=== PATIENT | female | born 1940 | race Caucasian/White ===

== ENCOUNTER 2016-08-17 20:08 | Emergency (ER) | payer OTHER ==
[~2016-08-17 20:08] MED LIST: AZITHROMYCIN250 MG PO; CALCIUM 600; CEPHALEXIN500 MG PO; CHLORTHALIDONE25 MG PO; FISH OIL; LISINOPRIL20 MG PO; LUCENTIS IM; MULTIPLE VITAMIN PO; NORCO1 TA1 PO; OCUVITE; PRESERVISION/LUTEIN; VISTARIL25 MG PO; VITAMIN D-31000 UNIT PO
--- NOTE | 2016-08-18 01:05 | ED CLINICAL REPORT ---
Clinical Report - Physicians/Mid Levels [facility] [address] [place] [address] 08/17/2016 20:08 Patient: KUMAR CORTES Time Seen: 21:38. Arrived- By private vehicle. Historian- patient. HISTORY OF PRESENT ILLNESS Chief Complaint: facial pain. No weakness or numbness. No tingling (she has suffered with several weeks of left-sided facial pain. She was seen today by her neurologist Dr. Ray. He ordered an MRI which was performed but she does not yet know the results. She was started on baclofen but says that in spite of that she is continuing to have pain. She says that it makes it difficult for her to drink fluids especially if they're cold.). This started several weeks ago and is still present. It was gradual in onset and has been constant. REVIEW OF SYSTEMS No chills, fever, sweats, calf pain or chest pain. No cough, difficulty breathing, pedal edema, palpitations or abdominal pain. No constipation, diarrhea, nausea, vomiting or urinary problems. All systems otherwise negative, except as recorded above. PAST HISTORY Problems: Dental Pain. Pleurisy. Pneumonia. Hepatitis C carrier. Murmur. Hypertension. Additional Surgeries: Appendectomy. Knee Surgery. Medications: Baclofen 10mg , TID. Lisinopril Oral (Tablet 20 mg) 1 tablet, daily. Allergies: No Known Drug Allergy. SOCIAL HISTORY Never smoker. No alcohol use or drug use. She lives with spouse. Has good social support. FAMILY HISTORY Denies family medical history. PHYSICAL EXAM Appearance: Alert. Head: Head atraumatic. Left cheek: severe tenderness. No erythema, swelling or ecchymosis. Eyes: Pupils equal, round and reactive to light. ENT: Normal ENT inspection. Airway intact. Pharynx normal. Neck: Normal inspection. Neck supple. CVS: Normal heart rate and rhythm. Heart sounds normal. Pulses normal. Respiratory: No respiratory distress. Breath sounds normal. Abdomen: Soft and nontender. No organomegaly. Back: Normal inspection. No CVA tenderness. Skin: Skin warm and dry. Normal skin color. Normal skin turgor. Extremities: Extremities exhibit normal ROM. No lower extremity edema. Neuro: Alert. Oriented X 3. Mood/affect normal. Cranial nerves normal (as tested). No facial weakness. No cerebellar findings. No motor deficit. No sensory deficit. LABS, X-RAYS, AND EKG Laboratory Tests: CBC w Diff: (TAMIR: 08/17/2016 22:45) ( [facility] [place] [place] 08/17/2016 22:53) Final results Test Result Flag Units (Reference) WHITE BLOOD COUNT 5.2 K/uL (4.5-11.5) RED BLOOD COUNT 4.57 M/uL (4.00-5.20) HEMOGLOBIN 13.7 gm/dL (12.0-16.0) HEMATOCRIT 42.6 % (36.0-46.0) MEAN CELL VOLUME 93 fL (80-100) MEAN CORPUSCULAR HGB 30 pg (26-34) MEAN CORPUSCULAR HGB CONC 32 g/dL (31-37) RED CELL DISTRIBUTION WIDTH 12.6 % (11.6-14.8) PLATELET COUNT 161 K/uL (150-400) LYMPH % 47.2 H % (25-40) MONO % 6.8 % (3-14) GRANULOCYTE % 46.0 L (53-90) CMP: (TAMIR: 08/17/2016 22:45) ( [facility] [place] 08/17/2016 23:05) Final results Test Result Flag Units (Reference) GLUCOSE 83 mg/dL (70-110) BUN 26 H mg/dL (7-18) CREATININE 0.9 mg/dL (0.6-1.3) Estimated GFR >60 mL/min Estimated GFR- >60 mL/min Note: Persistent reduction over 3 months in eGFR<60 mL/min/1.73 m2 defines CKD. Patients with eGFR values>=60 mL/min/1.73 m2 may also have CKD if evidence ofpersistent proteinuria. Additional information may be foundat www.kidney.org. SODIUM 140 mmol/L (136-145) POTASSIUM 3.5 mmol/L (3.5-5.1) CHLORIDE 101 mmol/L (98-107) CARBON DIOXIDE 29 mmol/L (21-32) CALCIUM 10.0 mg/dL (8.5-10.1) TOTAL PROTEIN 7.7 g/dL (6.4-8.2) ALBUMIN 4.0 g/dL (3.3-5.0) BILIRUBIN, TOTAL 1.3 H mg/dL (0.0-1.0) ALKALINE PHOSPHATASE 79 U/L (46-116) AST (SGOT) 59 H U/L (15-37) ALT (SGPT) 83 H U/L (12-78) . PROGRESS AND PROCEDURES Course of Care: Her MRI results are pending. She can follow up on the results of this with Dr. Ray. Consult obtained from neurology. Dr. Ray - he suggests that we start the patient on carbamazepine. We discussed the patient's hepatitis. He says that old labs she had mild elevations in her liver function tests. He feels that the carbamazepine will be safe as long as these elevations haven't increased. Case discussed. Phone consult only. Will see patient in the office. Patient/family counseled. Old medical records reviewed. Disposition: Discharged. Condition: stable. CLINICAL IMPRESSION Trigeminal neuralgia. INSTRUCTIONS Warnings: Further evaluation is necessary. GENERAL WARNINGS: Return or contact your physician immediately if your condition worsens or changes unexpectedly, if not improving as expected, or if other problems arise. Prescription Medications: Zofran 4 mg: Take 1 orally every six hours as needed for nausea/vomiting. Dispense ten (10). No refills. Substitution is permissible. Carbamazepine 200 mg tablets: take 1 orally every 12 hours. Dispense thirty (30). No refills. Follow-up: Follow up with a neurologist Dr. Ray in four days. Call for an appointment. Understanding of the discharge instructions verbalized by patient and family. (Electronically signed by Ion San MD 08/22/2016 16:13)
--- NOTE | 2016-08-18 01:05 | ED NURSING NOTES ---
Clinical Report - Nurses [facility] [address] [place] [address] 08/17/2016 20:08 Patient: KUMAR CORTES TRIAGE Triage time 21:32 Aug 17 2016. Acuity: LEVEL 4. Chief Complaint: (3-4 weeks). Alert. CHANDRAKANT COMA SCORE: [place] Coma Scale: 15- eyes open spontaneously (4); best verbal response- oriented x 4 (5); best motor response- obeys commands (6). --21:40 Ya Simon R.N. 21:32 08/17/16. BP: 177/146. HR: 69. RR: 18. O2 saturation: 100%. Temp: 98.5 F. Pain level now 10/10. --21:40 Ya Simon R.N. ( rapid triage done at time of check in (in [facility]), negative FAST exam at that time.). --21:54 Reshma Foster R.N. Weight: 68 kg estimated. Height/Length: 66 inches Estimated. BMI: 24.2. --21:31 Ya Siomn R.N. Medications Lisinopril Oral (Tablet 20 mg) 1 tablet, daily. --21:34 Ya Simon R.N. Baclofen 10mg , TID. --21:34 Ya Simon R.N. Medication/allergy information source: the patient. --21:40 Ya Simon R.N. Allergies No Known Drug Allergy. --21:34 Ya Simon R.N. History Arrived by private vehicle. Historian: patient. Primary physician (Dr. Ray - Neurology). ( Pt had an MRI today per Dr. Ray - Neurology for r/o Trigeminal Neurlagia/Neuritis. Was prescribed Baclofen for pain. Pt is here because she has increased pain, cannot eat or drink.). This started just prior to arrival and today. 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 SOCIAL HX: Never smoker. No alcohol use or drug use. No infectious disease exposure. FALL RISK ASSESSMENT: Fall risk assessment completed. No fall risk identified. NUTRITIONAL RISK ASSESSMENT: The nutritional risk assessment revealed no deficiencies. FUNCTIONAL ASSESSMENT: Functional assessment: no impairments noted. LEARNING NEEDS ASSESSMENT: The learning needs assessment revealed no barriers. SKIN INTEGRITY ASSESSMENT: Skin integrity risk assessment completed. No skin integrity risk identified. --21:40 Ya Simon R.N. PROBLEMS: Dental Pain. Pleurisy. Pneumonia. Hepatitis C carrier. Murmur. Hypertension. --21:35 Ya Simon R.N. Interventions ID band on patient. To room. --21:40 Ya Simon R.N. PHYSICAL ASSESSMENT 21:52. Ambulatory to room. GENERAL / NEURO / PSYCH: Alert. Oriented X 4. Appears in pain. ( pt unable to move mouth due to facial pain. writtng everything down. c/o nausea). RESPIRATORY: Respirations not labored. CVS: Capillary refill less than 2 seconds. GI / : ( c/o nausea). Abdomen soft. SKIN: Skin is warm and dry. --22:11 Radha Nunez R.N. NURSING PROGRESS NOTES ( Dr. San in triage room seeing pt. Pt is accompanied by her .). --21:40 Ya Simon R.N. ( Pt brought back to room 12.). --21:52 Ya Simon R.N. 22:02 08/17/2016 Zofran ODT (Ondansetron) PO Oral Disintegrating Tablets 4 mg given. Allergies verified and confirmed 5 rights. --22:09 Radha Nunez R.N. 22:04 08/17/2016 Dilaudid (HYDROmorphone HCl PF) IM 1 mg given. Given in the left ventral gluteus. Allergies verified, confirmed 5 rights and sedative warning given to the patient. --22:09 Radha Nunez R.N. 22:06 08/17/2016 Toradol (Ketorolac Tromethamine) IM 60 mg given. Given in the right ventral gluteus. Allergies verified and confirmed 5 rights. --22:10 Radha Nunez R.N. 22:11 08/17/16. ( meds given, pt c/o nausea.). --22:11 Radha Nunez R.N. 22:32 08/17/16. Reassessment after medication administered. She is resting quietly. Overall patient status is improved- she states feels better (3/10, but very sleepy). --22:32 Radha Nunez R.N. 22:34 08/17/16. BP: 160/64. HR: 66. RR: 16. O2 saturation: 99%. Temp: deferred. Pain level now: 10/16. Additional comments: states nause is better too . --22:35 Radha Nunez R.N. 22:38 08/17/16. Care transferred and report given (Radha JAQUEZ). --22:38 Radha Nunez R.N. ( PO Challenge). --23:13 Ya Simon R.N. 00:28 08/18/2016 Phenergan (Promethazine HCl) IM 25 mg given. Given in the left gluteus lesvia. Sedative warning given to the patient. --00:28 Ya Simon R.N. The patient has had no adverse reaction. Overall patient status is the same- she states feels the same. ( Pt offered warm water, unable to drink it she states. Pt offered and given many ideas of liquids to help her, chicken broth, predialyte, Propel, popsicles, pt states she cannot take any of this. RN told pt, "you have to try something". RN informed pt that she is refusing all offers of hydration, you are making it difficult to find a solution. Find something you can tolerate liquid stacy and stick with that for oral hydration. Pt has had the dry heaves, was medicated with Phenergan. Pt states she would just like to go home at this point.). --00:49 Ya Simon R.N. 00:46 08/18/16. BP: 160/70. HR: 78. RR: 18. O2 saturation: 98%. --00:49 Ya Simon R.N. DISPOSITION / DISCHARGE Departure time: 01:15 Aug 18 2016. Condition at departure: improved and stable. ( pt has not vomited. She states she is ready to go home. Sick bag provided for the ride.). No learning barriers present. Discharge instructions provided and reviewed with the patient and spouse. Patient and spouse verbalized understanding. Written instructions provided in Arabic. ( Assisted pt out to the car, helped into car.). The patient was discharged by the physician. She was discharged home and accompanied by spouse. She left the Emergency Department in a wheelchair and via private vehicle. Spouse driving. --01:50 Ya Simon R.N. 01:49 08/18/16. BP: 160/70. HR: 78. Pain level now 03/18. --01:50 Ya Simon R.N. Locked/Released at 08/18/2016 1:50 by Ya Simon R.N.
--- NOTE | 2016-08-18 01:05 | ED NURSING NOTES ---
Clinical Report - Nurses [facility] [address] [place] [address] 08/17/2016 20:08 Patient: KUMAR CORTES TRIAGE Triage time 21:32 Aug 17 2016. Acuity: LEVEL 4. Chief Complaint: (3-4 weeks). Alert. CHANDRAKANT COMA SCORE: [place] Coma Scale: 15- eyes open spontaneously (4); best verbal response- oriented x 4 (5); best motor response- obeys commands (6). --21:40 Ya Simon R.N. 21:32 08/17/16. BP: 177/146. HR: 69. RR: 18. O2 saturation: 100%. Temp: 98.5 F. Pain level now 10/10. --21:40 Ya Simon R.N. ( rapid triage done at time of check in (in [facility]), negative FAST exam at that time.). --21:54 Reshma Foster R.N. Weight: 68 kg estimated. Height/Length: 66 inches Estimated. BMI: 24.2. --21:31 Ya Simon R.N. Medications Lisinopril Oral (Tablet 20 mg) 1 tablet, daily. --21:34 Ya Simon R.N. Baclofen 10mg , TID. --21:34 Ya Simon R.N. Medication/allergy information source: the patient. --21:40 Ya Simon R.N. Allergies No Known Drug Allergy. --21:34 Ya Simon R.N. History Arrived by private vehicle. Historian: patient. Primary physician (Dr. Ray - Neurology). ( Pt had an MRI today per Dr. Ray - Neurology for r/o Trigeminal Neurlagia/Neuritis. Was prescribed Baclofen for pain. Pt is here because she has increased pain, cannot eat or drink.). This started just prior to arrival and today. 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 SOCIAL HX: Never smoker. No alcohol use or drug use. No infectious disease exposure. FALL RISK ASSESSMENT: Fall risk assessment completed. No fall risk identified. NUTRITIONAL RISK ASSESSMENT: The nutritional risk assessment revealed no deficiencies. FUNCTIONAL ASSESSMENT: Functional assessment: no impairments noted. LEARNING NEEDS ASSESSMENT: The learning needs assessment revealed no barriers. SKIN INTEGRITY ASSESSMENT: Skin integrity risk assessment completed. No skin integrity risk identified. --21:40 Ya Simon R.N. PROBLEMS: Dental Pain. Pleurisy. Pneumonia. Hepatitis C carrier. Murmur. Hypertension. --21:35 Ya Simon R.N. Interventions ID band on patient. To room. --21:40 Ya Simon R.N. PHYSICAL ASSESSMENT 21:52. Ambulatory to room. GENERAL / NEURO / PSYCH: Alert. Oriented X 4. Appears in pain. ( pt unable to move mouth due to facial pain. writtng everything down. c/o nausea). RESPIRATORY: Respirations not labored. CVS: Capillary refill less than 2 seconds. GI / : ( c/o nausea). Abdomen soft. SKIN: Skin is warm and dry. --22:11 Radha Nunez R.N. NURSING PROGRESS NOTES ( Dr. San in triage room seeing pt. Pt is accompanied by her .). --21:40 Ya Simon R.N. ( Pt brought back to room 12.). --21:52 Ya Simon R.N. 22:02 08/17/2016 Zofran ODT (Ondansetron) PO Oral Disintegrating Tablets 4 mg given. Allergies verified and confirmed 5 rights. --22:09 Radha Nunez R.N. 22:04 08/17/2016 Dilaudid (HYDROmorphone HCl PF) IM 1 mg given. Given in the left ventral gluteus. Allergies verified, confirmed 5 rights and sedative warning given to the patient. --22:09 Radha Nunez R.N. 22:06 08/17/2016 Toradol (Ketorolac Tromethamine) IM 60 mg given. Given in the right ventral gluteus. Allergies verified and confirmed 5 rights. --22:10 Radha Nunez R.N. 22:11 08/17/16. ( meds given, pt c/o nausea.). --22:11 Radha Nunez R.N. 22:32 08/17/16. Reassessment after medication administered. She is resting quietly. Overall patient status is improved- she states feels better (3/10, but very sleepy). --22:32 Radha Nunez R.N. 22:34 08/17/16. BP: 160/64. HR: 66. RR: 16. O2 saturation: 99%. Temp: deferred. Pain level now: 10/16. Additional comments: states nause is better too . --22:35 Radha Nunez R.N. 22:38 08/17/16. Care transferred and report given (Radha JAQUEZ). --22:38 Radha Nunez R.N. ( PO Challenge). --23:13 Ya Simon R.N. 00:28 08/18/2016 Phenergan (Promethazine HCl) IM 25 mg given. Given in the left gluteus lesvia. Sedative warning given to the patient. --00:28 Ya Simon R.N. The patient has had no adverse reaction. Overall patient status is the same- she states feels the same. ( Pt offered warm water, unable to drink it she states. Pt offered and given many ideas of liquids to help her, chicken broth, predialyte, Propel, popsicles, pt states she cannot take any of this. RN told pt, "you have to try something". RN informed pt that she is refusing all offers of hydration, you are making it difficult to find a solution. Find something you can tolerate liquid stacy and stick with that for oral hydration. Pt has had the dry heaves, was medicated with Phenergan. Pt states she would just like to go home at this point.). --00:49 Ya Simon R.N. 00:46 08/18/16. BP: 160/70. HR: 78. RR: 18. O2 saturation: 98%. --00:49 Ya Simon R.N. DISPOSITION / DISCHARGE Departure time: 01:15 Aug 18 2016. Condition at departure: improved and stable. ( pt has not vomited. She states she is ready to go home. Sick bag provided for the ride.). No learning barriers present. Discharge instructions provided and reviewed with the patient and spouse. Patient and spouse verbalized understanding. Written instructions provided in Kyrgyz. ( Assisted pt out to the car, helped into car.). The patient was discharged by the physician. She was discharged home and accompanied by spouse. She left the Emergency Department in a wheelchair and via private vehicle. Spouse driving. --01:50 Ya Simon R.N. 01:49 08/18/16. BP: 160/70. HR: 78. Pain level now 03/18. --01:50 Ya Simon R.N. Locked/Released at 08/18/2016 1:50 by Ya Simon R.N.
--- NOTE | 2016-08-18 01:05 | ED ORDER SUMMARY ---
..... Patient: KUMAR CORTES OrderSheet [facility] VisitID: [id number] [address] [place] [address] 76y, F Registration Date/Time: 08/17/2016 ORDER SHEET Weight: 68.0 kg (estimated) Allergies: No Known Drug Allergy GENERAL ORDERS: CBC w Diff Urgent (22:26 08/17/2016 Kathrin TURCIOS) (Ack 22:32 LMuller) (22:47 LMuller) CMP Urgent (22:26 08/17/2016 Kathrin TURCIOS) (Ack 22:32 LMuller) (22:47 LMuller) MEDICATION ORDERS: Dilaudid IM 1 mg (NOW) (21:49 08/17/2016 Kathrin TURCIOS) (Ack 21:57 DDean R.N.) (22:09 DDean R.N.) Zofran ODT PO 4 mg (NOW) (21:49 08/17/2016 Kathrin TURCIOS) (Ack 21:57 DDean R.N.) (22:09 DDean R.N.) Toradol IM 60 mg (NOW) (21:49 08/17/2016 Kathrin TURCIOS) (Ack 21:57 DDean R.N.) (22:10 DDean R.N.) Phenergan IM 25 mg (HIGH ALERT MEDICATION, NOW) (00:28 08/18/2016 SBalde R.N. verbal order read back to Kathrin TURCIOS) (0:28 SBalde R.N.) IV FLUIDS: ORDER SHEET NOTES: [Electronically signed by Ya Simon R.N. (01:50 08/18/2016)] [Electronically signed by Ion San MD (16:13 08/22/2016)] [Electronically locked/signed by Ya Simon R.N. (01:50 08/18/2016)]
--- NOTE | 2016-08-18 01:05 | ED CLINICAL REPORT ---
Clinical Report - Physicians/Mid Levels [facility] [address] [place] [place] [address] 08/17/2016 20:08 Patient: KUMAR CORTES Time Seen: 21:38. Arrived- By private vehicle. Historian- patient. HISTORY OF PRESENT ILLNESS Chief Complaint: facial pain. No weakness or numbness. No tingling (she has suffered with several weeks of left-sided facial pain. She was seen today by her neurologist Dr. Ray. He ordered an MRI which was performed but she does not yet know the results. She was started on baclofen but says that in spite of that she is continuing to have pain. She says that it makes it difficult for her to drink fluids especially if they're cold.). This started several weeks ago and is still present. It was gradual in onset and has been constant. REVIEW OF SYSTEMS No chills, fever, sweats, calf pain or chest pain. No cough, difficulty breathing, pedal edema, palpitations or abdominal pain. No constipation, diarrhea, nausea, vomiting or urinary problems. All systems otherwise negative, except as recorded above. PAST HISTORY Problems: Dental Pain. Pleurisy. Pneumonia. Hepatitis C carrier. Murmur. Hypertension. Additional Surgeries: Appendectomy. Knee Surgery. Medications: Baclofen 10mg , TID. Lisinopril Oral (Tablet 20 mg) 1 tablet, daily. Allergies: No Known Drug Allergy. SOCIAL HISTORY Never smoker. No alcohol use or drug use. She lives with spouse. Has good social support. FAMILY HISTORY Denies family medical history. PHYSICAL EXAM Appearance: Alert. Head: Head atraumatic. Left cheek: severe tenderness. No erythema, swelling or ecchymosis. Eyes: Pupils equal, round and reactive to light. ENT: Normal ENT inspection. Airway intact. Pharynx normal. Neck: Normal inspection. Neck supple. CVS: Normal heart rate and rhythm. Heart sounds normal. Pulses normal. Respiratory: No respiratory distress. Breath sounds normal. Abdomen: Soft and nontender. No organomegaly. Back: Normal inspection. No CVA tenderness. Skin: Skin warm and dry. Normal skin color. Normal skin turgor. Extremities: Extremities exhibit normal ROM. No lower extremity edema. Neuro: Alert. Oriented X 3. Mood/affect normal. Cranial nerves normal (as tested). No facial weakness. No cerebellar findings. No motor deficit. No sensory deficit. LABS, X-RAYS, AND EKG Laboratory Tests: CBC w Diff: (TAMIR: 08/17/2016 22:45) ( [facility] [place] 22:53) Final results Test Result Flag Units (Reference) WHITE BLOOD COUNT 5.2 K/uL (4.5-11.5) RED BLOOD COUNT 4.57 M/uL (4.00-5.20) HEMOGLOBIN 13.7 gm/dL (12.0-16.0) HEMATOCRIT 42.6 % (36.0-46.0) MEAN CELL VOLUME 93 fL (80-100) MEAN CORPUSCULAR HGB 30 pg (26-34) MEAN CORPUSCULAR HGB CONC 32 g/dL (31-37) RED CELL DISTRIBUTION WIDTH 12.6 % (11.6-14.8) PLATELET COUNT 161 K/uL (150-400) LYMPH % 47.2 H % (25-40) MONO % 6.8 % (3-14) GRANULOCYTE % 46.0 L (53-90) CMP: (TAMIR: 08/17/2016 22:45) ( [facility] [place] 08/17/2016 23:05) Final results Test Result Flag Units (Reference) GLUCOSE 83 mg/dL (70-110) BUN 26 H mg/dL (7-18) CREATININE 0.9 mg/dL (0.6-1.3) Estimated GFR >60 mL/min Estimated GFR- >60 mL/min Note: Persistent reduction over 3 months in eGFR<60 mL/min/1.73 m2 defines CKD. Patients with eGFR values>=60 mL/min/1.73 m2 may also have CKD if evidence ofpersistent proteinuria. Additional information may be foundat www.kidney.org. SODIUM 140 mmol/L (136-145) POTASSIUM 3.5 mmol/L (3.5-5.1) CHLORIDE 101 mmol/L (98-107) CARBON DIOXIDE 29 mmol/L (21-32) CALCIUM 10.0 mg/dL (8.5-10.1) TOTAL PROTEIN 7.7 g/dL (6.4-8.2) ALBUMIN 4.0 g/dL (3.3-5.0) BILIRUBIN, TOTAL 1.3 H mg/dL (0.0-1.0) ALKALINE PHOSPHATASE 79 U/L (46-116) AST (SGOT) 59 H U/L (15-37) ALT (SGPT) 83 H U/L (12-78) . PROGRESS AND PROCEDURES Course of Care: Her MRI results are pending. She can follow up on the results of this with Dr. Ray. Consult obtained from neurology. Dr. Ray - he suggests that we start the patient on carbamazepine. We discussed the patient's hepatitis. He says that old labs she had mild elevations in her liver function tests. He feels that the carbamazepine will be safe as long as these elevations haven't increased. Case discussed. Phone consult only. Will see patient in the office. Patient/family counseled. Old medical records reviewed. Disposition: Discharged. Condition: stable. CLINICAL IMPRESSION Trigeminal neuralgia. INSTRUCTIONS Warnings: Further evaluation is necessary. GENERAL WARNINGS: Return or contact your physician immediately if your condition worsens or changes unexpectedly, if not improving as expected, or if other problems arise. Prescription Medications: Zofran 4 mg: Take 1 orally every six hours as needed for nausea/vomiting. Dispense ten (10). No refills. Substitution is permissible. Carbamazepine 200 mg tablets: take 1 orally every 12 hours. Dispense thirty (30). No refills. Follow-up: Follow up with a neurologist Dr. Ray in four days. Call for an appointment. Understanding of the discharge instructions verbalized by patient and family. (Electronically signed by Ion San MD 08/22/2016 16:13)
--- NOTE | 2016-08-18 01:05 | ED ORDER SUMMARY ---
..... Patient: KUMAR CORTES OrderSheet [facility] VisitID: [id number] [address] [place] [address] 76y, F Registration Date/Time: 08/17/2016 ORDER SHEET Weight: 68.0 kg (estimated) Allergies: No Known Drug Allergy GENERAL ORDERS: CBC w Diff Urgent (22:26 08/17/2016 Kathrin TURCIOS) (Ack 22:32 LMuller) (22:47 LMuller) CMP Urgent (22:26 08/17/2016 Kathrin TURCIOS) (Ack 22:32 LMuller) (22:47 LMuller) MEDICATION ORDERS: Dilaudid IM 1 mg (NOW) (21:49 08/17/2016 Kathrin TURCIOS) (Ack 21:57 DDean R.N.) (22:09 DDean R.N.) Zofran ODT PO 4 mg (NOW) (21:49 08/17/2016 Kathrin TURCIOS) (Ack 21:57 DDean R.N.) (22:09 DDean R.N.) Toradol IM 60 mg (NOW) (21:49 08/17/2016 Kathrin TURCIOS) (Ack 21:57 DDean R.N.) (22:10 DDean R.N.) Phenergan IM 25 mg (HIGH ALERT MEDICATION, NOW) (00:28 08/18/2016 SBalde R.N. verbal order read back to Kathrin TURCIOS) (0:28 SBalde R.N.) IV FLUIDS: ORDER SHEET NOTES: [Electronically signed by Ya Simon R.N. (01:50 08/18/2016)] [Electronically signed by Ion San MD (16:13 08/22/2016)] [Electronically locked/signed by Ya Simon R.N. (01:50 08/18/2016)]
--- NOTE | 2016-08-22 16:13 | ED MAR SUMMARY ---
..... Medication Administration Record [facility] [address] [place] [address] Patient: KUMAR CORTES Visit ID: [id number] 76y, F Weight: 68.0 kg Height/Length: 66 in BMI: 24.2 ALLERGIES: No Known Drug Allergy Given 22:02 08/17/2016 Radha Nunez R.N. Medication Administered: ZOFRAN ODT [PO] (ONDANSETRON), Dose: 4 mg Oral Disintegrating Tablets PO. Medication Ordered: Zofran ODT PO 4 mg (NOW). Given 22:04 08/17/2016 Radha Nunez R.N. Medication Administered: DILAUDID [IM] (HYDROMORPHONE HCL PF), Dose: 1 mg IM. Medication Ordered: Dilaudid IM 1 mg (NOW). Given 22:06 08/17/2016 Radha Nunez R.N. Medication Administered: TORADOL [IM] (KETOROLAC TROMETHAMINE), Dose: 60 mg IM. Medication Ordered: Toradol IM 60 mg (NOW). Given 00:28 08/18/2016 Ya Simon R.N. Medication Administered: PHENERGAN [IM] (PROMETHAZINE HCL), Dose: 25 mg IM. Medication Ordered: Phenergan IM 25 mg (HIGH ALERT MEDICATION, NOW).
--- NOTE | 2016-08-22 16:13 | ED MED RECONCILIATION SUMMARY ---
Patient: KUMAR CORTES Medication Reconciliation Report [facility] VisitID: [id number] [address] [place] [address] 76y, F Registration Date/Time: 08/17/2016 Weight: 68.0 kg Height/Length: 66 in. BMI: 24.2 ALLERGIES: No Known Drug Allergy The patient's Home Medications are listed below: THE FOLLOWING MEDICATIONS NEED TO BE RECONCILED: Baclofen 10mg , TID Lisinopril Oral (20 mg) 1 tablet, daily The source(s) of the original Home Medication information: patient The following Medications were given to the patient in the Emergency Department: Zofran ODT [PO] PO 4 mg, administered: 08/17/2016 10:02:00 PM Dilaudid [IM] IM 1 mg, administered: 08/17/2016 10:04:00 PM Toradol [IM] IM 60 mg, administered: 08/17/2016 10:06:00 PM Phenergan [IM] IM 25 mg, administered: 08/18/2016 12:28:00 AM The following Medications were prescribed to the patient: Zofran 4 mg: Take 1 orally every six hours as needed for nausea/vomiting. Dispense ten (10). No refills. Substitution is permissible. -- Ion San MD Carbamazepine 200 mg tablets: take 1 orally every 12 hours. Dispense thirty (30). No refills. -- Ion San MD
--- NOTE | 2016-08-22 16:13 | ED DISCHARGE INSTRUCTIONS ---
Patient: KUMAR CORTES General Instructions [facility] VisitID: [id number] [place] [address] 76y, F Registration Date/Time: 08/17/2016 Trigeminal neuralgia. INSTRUCTIONS Warnings: Further evaluation is necessary. GENERAL WARNINGS: Return or contact your physician immediately if your condition worsens or changes unexpectedly, if not improving as expected, or if other problems arise. Prescription Medications: Zofran 4 mg: Take 1 orally every six hours as needed for nausea/vomiting. Dispense ten (10). No refills. Substitution is permissible. Carbamazepine 200 mg tablets: take 1 orally every 12 hours. Dispense thirty (30). No refills. Follow-up: Follow up with a neurologist Dr. Ray in four days. Call for an appointment. Understanding of the discharge instructions verbalized by patient and family. ADDITIONAL INFORMATION Ondansetron Oral disintegrating tablet What is this medicine? ONDANSETRON (on SELINA se jay) is used to treat nausea and vomiting caused by chemotherapy. It is also used to prevent or treat nausea and vomiting after surgery. How should I use this medicine? These tablets are made to dissolve in the mouth. Do not try to push the tablet through the foil backing. With dry hands, peel away the foil backing and gently remove the tablet. Place the tablet in the mouth and allow it to dissolve, then swallow. While you may take these tablets with water, it is not necessary to do so. Talk to your hydrodynamics teacher regarding the use of this medicine in children. Special care may be needed. What side effects may I notice from receiving this medicine? Side effects that you should report to your doctor or health adult daycare coordinator as soon as possible: allergic reactions like skin rash, itching or hives, swelling of the face, lips, or tongue breathing problems dizziness fast or irregular heartbeat feeling faint or lightheaded, falls fever and chills swelling of the hands and feet tightness in the chest Side effects that usually do not require medical attention (report to your doctor or health adult daycare coordinator if they continue or are bothersome): constipation or diarrhea headache What may interact with this medicine? Do not take this medicine with any of the following medications: -apomorphine -cisapride -dofetilide -dronedarone -pimozide -thioridazine -ziprasidone This medicine may also interact with the following medications: -carbamazepine -phenytoin -rifampicin -tramadol -other medicines that prolong the QT interval (cause an abnormal heart rhythm) What if I miss a dose? If you miss a dose, take it as soon as you can. If it is almost time for your next dose, take only that dose. Do not take double or extra doses. Where should I keep my medicine? Keep out of the reach of children. Store between 2 and 30 degrees C (36 and 86 degrees F). Throw away any unused medicine after the expiration date. What should I tell my health care provider before I take this medicine? They need to know if you have any of these conditions: heart disease history of irregular heartbeat liver disease low levels of magnesium or potassium in the blood an unusual or allergic reaction to ondansetron, granisetron, other medicines, foods, dyes, or preservatives or trying to get breast-feeding What should I watch for while using this medicine? Check with your doctor or health adult daycare coordinator as soon as you can if you have any sign of an allergic reaction. Carbamazepine Oral tablet What is this medicine? CARBAMAZEPINE (laron Cooper) is used to control seizures caused by certain types of epilepsy. This medicine is also used to treat nerve related pain. It is not for common aches and pains. How should I use this medicine? Take this medicine by mouth with a glass of water. Follow the directions on the prescription label. Take this medicine with food. Take your doses at regular intervals. Do not take your medicine more often than directed. Do not stop taking this medicine except on the advice of your doctor or health adult daycare coordinator. A special MedGuide will be given to you by the pharmacist with each prescription and refill. Be sure to read this information carefully each time. Talk to your hydrodynamics teacher regarding the use of this medicine in children. Special care may be needed. What side effects may I notice from receiving this medicine? Side effects that you should report to your doctor or health adult daycare coordinator as soon as possible: allergic reactions like skin rash, itching or hives, swelling of the face, lips, or tongue breathing problems changes in vision confusion dark urine fast or irregular heartbeat fever or chills, sore throat mouth ulcers pain or difficulty passing urine redness, blistering, peeling or loosening of the skin, including inside the mouth ringing in the ears seizures stomach pain swollen joints or muscle/joint aches and pains unusual bleeding or bruising unusually weak or tired vomiting worsening of mood, thoughts or actions of suicide or dying yellowing of the eyes or skin Side effects that usually do not require medical attention (report to your doctor or health adult daycare coordinator if they continue or are bothersome): clumsiness or unsteadiness diarrhea or constipation headache increased sweating nausea What may interact with this medicine? Do not take this medicine with any of the following medications: delavirdine MAOIs like Carbex, Eldepryl, Marplan, Nardil, and Parnate nefazodone oxcarbazepine This medicine may also interact with the following medications: acetaminophen acetazolamide barbiturate medicines for inducing sleep or treating seizures, like phenobarbital certain antibiotics like clarithromycin, erythromycin or troleandomycin cimetidine cyclosporine danazol dicumarol doxycycline female hormones, including estrogens and control pills grapefruit juice isoniazid, INH levothyroxine and other thyroid hormones lithium and other medicines to treat mood problems or psychotic disturbances loratadine medicines for angina or high blood pressure medicines for cancer medicines for depression or anxiety medicines for sleep medicines to treat fungal infections, like fluconazole, itraconazole or ketoconazole medicines used to treat HIV infection or AIDS methadone niacinamide praziquantel propoxyphene rifampin or rifabutin seizure or epilepsy medicine steroid medicines such as prednisone or cortisone theophylline tramadol warfarin What if I miss a dose? If you miss a dose, take it as soon as you can. If it is almost time for your next dose, take only that dose. Do not take double or extra doses. Where should I keep my medicine? Keep out of reach of children. Store at room temperature below 30 degrees C (86 degrees F). Keep container tightly closed. Protect from moisture. Throw away any unused medicine after the expiration date. What should I tell my health care provider before I take this medicine? They need to know if you have any of these conditions: ancestry bone marrow disease glaucoma heart disease or irregular heartbeat kidney disease liver disease low blood counts, like low white cell, platelet, or red cell counts porphyria psychotic disorders suicidal thoughts, plans, or attempt; a previous suicide attempt by you or a family member an unusual or allergic reaction to carbamazepine, tricyclic antidepressants, phenytoin, phenobarbital or other medicines, foods, dyes, or preservatives or trying to get breast-feeding What should I watch for while using this medicine? Visit your doctor or health adult daycare coordinator for a regular check on your progress. Do not change brands or dosage forms of this medicine without discussing the change with your doctor or health adult daycare coordinator. If you are taking this medicine for epilepsy (seizures) do not stop taking it suddenly. This increases the risk of seizures. Wear a Medic Alert bracelet or necklace. Carry an identification card with information about your condition, medications, and doctor or health adult daycare coordinator. You may get drowsy, dizzy, or have blurred vision. Do not drive, use machinery, or do anything that needs mental alertness until you know how this medicine affects you. To reduce dizzy or fainting spells, do not sit or stand up quickly, especially if you are an older patient. Alcohol can increase drowsiness and dizziness. Avoid alcoholic drinks. control pills may not work properly while you are taking this medicine. Talk to your doctor about using an extra method of control. This medicine can make you more sensitive to the sun. Keep out of the sun. If you cannot avoid being in the sun, wear protective clothing and use sunscreen. Do not use sun lamps or tanning beds/booths. The use of this medicine may increase the chance of suicidal thoughts or actions. Pay special attention to how you are responding while on this medicine. Any worsening of mood, or thoughts of suicide or dying should be reported to your health adult daycare coordinator right away. Women who become while using this medicine may enroll in the [place]iepileptic Drug Registry by calling . This registry collects information about the safety of antiepileptic drug use during . You have been given the following additional information: Ondansetron Oral disintegrating tablet Carbamazepine Oral tablet (Electronically signed by Ion San MD 08/22/2016 16:13)
--- NOTE | 2016-08-22 16:13 | ED MAR SUMMARY ---
..... Medication Administration Record [facility] [address] [place] [address] Patient: KUMAR CORTES Visit ID: [id number] 76y, F Weight: 68.0 kg Height/Length: 66 in BMI: 24.2 ALLERGIES: No Known Drug Allergy Given 22:02 08/17/2016 Radha Nunez R.N. Medication Administered: ZOFRAN ODT [PO] (ONDANSETRON), Dose: 4 mg Oral Disintegrating Tablets PO. Medication Ordered: Zofran ODT PO 4 mg (NOW). Given 22:04 08/17/2016 Radha Nunez R.N. Medication Administered: DILAUDID [IM] (HYDROMORPHONE HCL PF), Dose: 1 mg IM. Medication Ordered: Dilaudid IM 1 mg (NOW). Given 22:06 08/17/2016 Radha Nunez R.N. Medication Administered: TORADOL [IM] (KETOROLAC TROMETHAMINE), Dose: 60 mg IM. Medication Ordered: Toradol IM 60 mg (NOW). Given 00:28 08/18/2016 Ya Simon R.N. Medication Administered: PHENERGAN [IM] (PROMETHAZINE HCL), Dose: 25 mg IM. Medication Ordered: Phenergan IM 25 mg (HIGH ALERT MEDICATION, NOW).
--- NOTE | 2016-08-22 16:13 | ED MED RECONCILIATION SUMMARY ---
Patient: KUMAR CORTES Medication Reconciliation Report [facility] VisitID: [id number] [address] [place] [address] 76y, F Registration Date/Time: 08/17/2016 Weight: 68.0 kg Height/Length: 66 in. BMI: 24.2 ALLERGIES: No Known Drug Allergy The patient's Home Medications are listed below: THE FOLLOWING MEDICATIONS NEED TO BE RECONCILED: Baclofen 10mg , TID Lisinopril Oral (20 mg) 1 tablet, daily The source(s) of the original Home Medication information: patient The following Medications were given to the patient in the Emergency Department: Zofran ODT [PO] PO 4 mg, administered: 08/17/2016 10:02:00 PM Dilaudid [IM] IM 1 mg, administered: 08/17/2016 10:04:00 PM Toradol [IM] IM 60 mg, administered: 08/17/2016 10:06:00 PM Phenergan [IM] IM 25 mg, administered: 08/18/2016 12:28:00 AM The following Medications were prescribed to the patient: Zofran 4 mg: Take 1 orally every six hours as needed for nausea/vomiting. Dispense ten (10). No refills. Substitution is permissible. -- Ion San MD Carbamazepine 200 mg tablets: take 1 orally every 12 hours. Dispense thirty (30). No refills. -- Ion San MD
--- NOTE | 2016-08-22 16:13 | ED DISCHARGE INSTRUCTIONS ---
Patient: KUMAR CORTES General Instructions [facility] VisitID: [id number] [place] [address] 76y, F Registration Date/Time: 08/17/2016 Trigeminal neuralgia. INSTRUCTIONS Warnings: Further evaluation is necessary. GENERAL WARNINGS: Return or contact your physician immediately if your condition worsens or changes unexpectedly, if not improving as expected, or if other problems arise. Prescription Medications: Zofran 4 mg: Take 1 orally every six hours as needed for nausea/vomiting. Dispense ten (10). No refills. Substitution is permissible. Carbamazepine 200 mg tablets: take 1 orally every 12 hours. Dispense thirty (30). No refills. Follow-up: Follow up with a neurologist Dr. Ray in four days. Call for an appointment. Understanding of the discharge instructions verbalized by patient and family. ADDITIONAL INFORMATION Ondansetron Oral disintegrating tablet What is this medicine? ONDANSETRON (on SELINA se jay) is used to treat nausea and vomiting caused by chemotherapy. It is also used to prevent or treat nausea and vomiting after surgery. How should I use this medicine? These tablets are made to dissolve in the mouth. Do not try to push the tablet through the foil backing. With dry hands, peel away the foil backing and gently remove the tablet. Place the tablet in the mouth and allow it to dissolve, then swallow. While you may take these tablets with water, it is not necessary to do so. Talk to your restaurant worker regarding the use of this medicine in children. Special care may be needed. What side effects may I notice from receiving this medicine? Side effects that you should report to your doctor or health health care attorney as soon as possible: allergic reactions like skin rash, itching or hives, swelling of the face, lips, or tongue breathing problems dizziness fast or irregular heartbeat feeling faint or lightheaded, falls fever and chills swelling of the hands and feet tightness in the chest Side effects that usually do not require medical attention (report to your doctor or health health care attorney if they continue or are bothersome): constipation or diarrhea headache What may interact with this medicine? Do not take this medicine with any of the following medications: -apomorphine -cisapride -dofetilide -dronedarone -pimozide -thioridazine -ziprasidone This medicine may also interact with the following medications: -carbamazepine -phenytoin -rifampicin -tramadol -other medicines that prolong the QT interval (cause an abnormal heart rhythm) What if I miss a dose? If you miss a dose, take it as soon as you can. If it is almost time for your next dose, take only that dose. Do not take double or extra doses. Where should I keep my medicine? Keep out of the reach of children. Store between 2 and 30 degrees C (36 and 86 degrees F). Throw away any unused medicine after the expiration date. What should I tell my health care provider before I take this medicine? They need to know if you have any of these conditions: heart disease history of irregular heartbeat liver disease low levels of magnesium or potassium in the blood an unusual or allergic reaction to ondansetron, granisetron, other medicines, foods, dyes, or preservatives or trying to get breast-feeding What should I watch for while using this medicine? Check with your doctor or health health care attorney as soon as you can if you have any sign of an allergic reaction. Carbamazepine Oral tablet What is this medicine? CARBAMAZEPINE (laron Cooper) is used to control seizures caused by certain types of epilepsy. This medicine is also used to treat nerve related pain. It is not for common aches and pains. How should I use this medicine? Take this medicine by mouth with a glass of water. Follow the directions on the prescription label. Take this medicine with food. Take your doses at regular intervals. Do not take your medicine more often than directed. Do not stop taking this medicine except on the advice of your doctor or health health care attorney. A special MedGuide will be given to you by the pharmacist with each prescription and refill. Be sure to read this information carefully each time. Talk to your restaurant worker regarding the use of this medicine in children. Special care may be needed. What side effects may I notice from receiving this medicine? Side effects that you should report to your doctor or health health care attorney as soon as possible: allergic reactions like skin rash, itching or hives, swelling of the face, lips, or tongue breathing problems changes in vision confusion dark urine fast or irregular heartbeat fever or chills, sore throat mouth ulcers pain or difficulty passing urine redness, blistering, peeling or loosening of the skin, including inside the mouth ringing in the ears seizures stomach pain swollen joints or muscle/joint aches and pains unusual bleeding or bruising unusually weak or tired vomiting worsening of mood, thoughts or actions of suicide or dying yellowing of the eyes or skin Side effects that usually do not require medical attention (report to your doctor or health health care attorney if they continue or are bothersome): clumsiness or unsteadiness diarrhea or constipation headache increased sweating nausea What may interact with this medicine? Do not take this medicine with any of the following medications: delavirdine MAOIs like Carbex, Eldepryl, Marplan, Nardil, and Parnate nefazodone oxcarbazepine This medicine may also interact with the following medications: acetaminophen acetazolamide barbiturate medicines for inducing sleep or treating seizures, like phenobarbital certain antibiotics like clarithromycin, erythromycin or troleandomycin cimetidine cyclosporine danazol dicumarol doxycycline female hormones, including estrogens and control pills grapefruit juice isoniazid, INH levothyroxine and other thyroid hormones lithium and other medicines to treat mood problems or psychotic disturbances loratadine medicines for angina or high blood pressure medicines for cancer medicines for depression or anxiety medicines for sleep medicines to treat fungal infections, like fluconazole, itraconazole or ketoconazole medicines used to treat HIV infection or AIDS methadone niacinamide praziquantel propoxyphene rifampin or rifabutin seizure or epilepsy medicine steroid medicines such as prednisone or cortisone theophylline tramadol warfarin What if I miss a dose? If you miss a dose, take it as soon as you can. If it is almost time for your next dose, take only that dose. Do not take double or extra doses. Where should I keep my medicine? Keep out of reach of children. Store at room temperature below 30 degrees C (86 degrees F). Keep container tightly closed. Protect from moisture. Throw away any unused medicine after the expiration date. What should I tell my health care provider before I take this medicine? They need to know if you have any of these conditions: ancestry bone marrow disease glaucoma heart disease or irregular heartbeat kidney disease liver disease low blood counts, like low white cell, platelet, or red cell counts porphyria psychotic disorders suicidal thoughts, plans, or attempt; a previous suicide attempt by you or a family member an unusual or allergic reaction to carbamazepine, tricyclic antidepressants, phenytoin, phenobarbital or other medicines, foods, dyes, or preservatives or trying to get breast-feeding What should I watch for while using this medicine? Visit your doctor or health health care attorney for a regular check on your progress. Do not change brands or dosage forms of this medicine without discussing the change with your doctor or health health care attorney. If you are taking this medicine for epilepsy (seizures) do not stop taking it suddenly. This increases the risk of seizures. Wear a Medic Alert bracelet or necklace. Carry an identification card with information about your condition, medications, and doctor or health health care attorney. You may get drowsy, dizzy, or have blurred vision. Do not drive, use machinery, or do anything that needs mental alertness until you know how this medicine affects you. To reduce dizzy or fainting spells, do not sit or stand up quickly, especially if you are an older patient. Alcohol can increase drowsiness and dizziness. Avoid alcoholic drinks. control pills may not work properly while you are taking this medicine. Talk to your doctor about using an extra method of control. This medicine can make you more sensitive to the sun. Keep out of the sun. If you cannot avoid being in the sun, wear protective clothing and use sunscreen. Do not use sun lamps or tanning beds/booths. The use of this medicine may increase the chance of suicidal thoughts or actions. Pay special attention to how you are responding while on this medicine. Any worsening of mood, or thoughts of suicide or dying should be reported to your health health care attorney right away. Women who become while using this medicine may enroll in the [place] Antiepileptic Drug Registry by calling . This registry collects information about the safety of antiepileptic drug use during . You have been given the following additional information: Ondansetron Oral disintegrating tablet Carbamazepine Oral tablet (Electronically signed by Ion San MD 08/22/2016 16:13)
== END 2016-08-18 01:15 | disposition home or self-care (01) ==
LOC: ED SRH 20:08
DX: G50.0 Trigeminal neuralgia (principal); I10 Essential (primary) hypertension; Z79.899 Other long term (current) drug therapy
CPT/HCPCS: 90100; 95059